=== PATIENT | male | born 1940 | race Caucasian/White ===

== ENCOUNTER 2018-03-01 20:28 | Outpatient (REF) | payer MEDICARE, SELFPAY ==
[2018-03-01 21:08] LABS: Potassium 3.4 mmol/L (3.5-5.1)
== END 2018-03-01 20:48 ==
LOC: NCHCN 20:28
PROVIDERS: Visit Provider Family Medicine
DX: E87.6 Hypokalemia (principal)
CPT/HCPCS: 84132

== ENCOUNTER 2018-10-25 14:57 | Outpatient (REF) | payer MEDICARE, SELFPAY ==
[2018-10-25 21:44] LABS: Abs Immature Grans 0.27 k/cumm (0.0-0.09); HCT 42.5 % (40.0-50.0); Mean Corp. HGB Concentration 32.9 g/dL (32.0-36.0); Mean Corpuscular Hemoglobin 27.2 pg (27.0-33.0); Mean Corpuscular Volume 82.7 fL (80-95); Mean Platelet Volume 11.7 fL (8.0-11.0); Platelet Count 118 x1000/uL (130-400); RBC 5.14 m/cumm (4.50-6.00); RBC Distribution Width 17.9 % (11.8-14.1); White Blood Cell Count 11.29 k/cumm (4.4-10.8)
[2018-10-25 22:08] LABS: ALT 31 U/L (12-78); AST 24 U/L (15-37); Alkaline Phosphatase 76 U/L (46-116); Anion Gap 11.4 mmol/L (3-11); BUN 23 mg/dL (7-18); Bilirubin, Total 0.4 mg/dL (0.2-1.0); CO2 26.6 mmol/L (21.0-32.0); Calcium 10.2 mg/dL (8.5-10.1); Chloride 105 mmol/L (98-107); Estimated GFR 53.67 (mL/min/1.73m2); Glucose 104 mg/dL (70-100); Potassium 3.8 mmol/L (3.5-5.1); Sodium 143 mmol/L (136-145); TSH 2.75 uIU/mL (0.358-3.74)
[2018-10-25 22:46] LABS: Absolute Lymphocyte Count 3.61 k/cumm (1.2-3.4); Absolute Neutrophil Count 5.08 k/cumm (1.2-6.7)
[2018-10-25 22:47] LABS: Absolute Basophil Count 0.11 k/cumm (0.0-0.2); Absolute Monocyte Count 2.37 k/cumm (0.11-0.7); Atypical Lymphocytes % 9; Diff Comment Manual Differential; Nucleated RBC 1 /100WBC; RBC Morphology Normal
== END 2018-10-25 15:17 ==
LOC: NCHCN 14:57
PROVIDERS: Visit Provider Family Medicine
DX: I10 Essential (primary) hypertension (principal); E03.9 Hypothyroidism, unspecified; D69.6 Thrombocytopenia, unspecified
CPT/HCPCS: 80053; 84443; 85025

== ENCOUNTER 2021-07-30 21:20 | Outpatient (REF) | payer MEDICARE, SELFPAY ==
[2021-07-30 21:38] LABS: HGB 8.2 g/dL (13.5-17.5); MCH 25.2 pg (27.0-33.0); MCHC 30.4 % (32.0-36.0); MCV 82.8 fL (80-95); Nucleated RBC 0 %; RBC 3.26 10^6/uL (4.36-5.78); RDW 17.5 % (11.8-14.1); RDW-SD 51.8 fL
[2021-07-30 22:12] LABS: Platelet Count 80 10^3/uL (130-400)
[2021-07-30 22:13] LABS: Absolute Eosinophil Count 0.13 10^3/uL (0.0-0.7); Absolute Lymphocyte Count 1.82 10^3/uL (1.2-3.4); Absolute Monocyte Count 1.43 10^3/uL (0.1-0.8); Absolute Neutrophil Count 8.97 10^3/uL (1.2-6.7); Bands % 1; Diff Comment Manual Differential; Metamyelocytes % 1; Myelocytes % 4
[2021-07-30 22:14] LABS: Anisocytosis 1+; Microcytosis 1+; Poikilocytes 2+
== END 2021-07-30 21:21 | disposition home or self-care (01) ==
LOC: LBN 21:20
PROVIDERS: Visit Provider Family Medicine
DX: R64 Cachexia
CPT/HCPCS: 80053; 84443; 85025

== ENCOUNTER 2021-08-20 20:39 | Outpatient (REF) | payer MEDICARE, SELFPAY ==
[2021-08-20 21:12] LABS: HCT 30.8 % (40.0-50.0); HGB 9.5 g/dL (13.5-17.5); MCH 26.3 pg (27.0-33.0); MCHC 30.8 % (32.0-36.0); MCV 85.3 fL (80-95); MPV 12.7 fL (8.0-11.0); Nucleated RBC 0 %; RBC 3.61 10^6/uL (4.36-5.78); RDW 18.5 % (11.8-14.1); RDW-SD 57.5 fL
[2021-08-20 21:15] LABS: ESR 21 mm/hr (0-20)
[2021-08-20 21:35] LABS: ALT 19 U/L (16-63); AST 14 U/L (15-37); Albumin 3.1 g/dL (3.4-5.0); Alkaline Phosphatase 89 U/L (46-116); BUN 26 mg/dL (7-18); Bilirubin, Total 0.7 mg/dL (0.2-1.0); C-Reactive Protein 5.45 mg/dL (0.0-0.3); CREATININE 1.6 mg/dL (0.70-1.30); Calcium 9.2 mg/dL (8.5-10.1); Chloride 102 mmol/L (98-107); Glucose 89 mg/dL (74-106); Potassium 4.5 mmol/L (3.5-5.1); Sodium 136 mmol/L (136-145); Total Protein 6.6 g/dL (6.4-8.2)
[2021-08-20 21:54] LABS: WBC 27.29 10^3/uL (4.4-10.8)
[2021-08-20 22:01] LABS: Platelet Count 83 10^3/uL (130-400)
[2021-08-20 22:02] LABS: Absolute Eosinophil Count 0.27 10^3/uL (0.0-0.7); Absolute Lymphocyte Count 4.37 10^3/uL (1.2-3.4); Absolute Monocyte Count 4.37 10^3/uL (0.1-0.8); Absolute Neutrophil Count 16.65 10^3/uL (1.2-6.7); Bands % 5; Metamyelocytes % 3; Myelocytes % 3
[2021-08-20 22:04] LABS: Diff Comment Manual Differential; Poikilocytes 1+
== END 2021-08-20 20:40 | disposition home or self-care (01) ==
LOC: LBN 20:39
PROVIDERS: Visit Provider Family Medicine
DX: C91.90 Lymphoid leukemia, unspecified not having achieved remission (principal); I12.9 Hypertensive chronic kidney disease with stage 1 through stage 4 chronic kidney disease, or unspecified chronic kidney disease; N18.32 Chronic kidney disease, stage 3b; M06.9 Rheumatoid arthritis, unspecified
CPT/HCPCS: 80053; 85652; 85025; 86140

== ENCOUNTER 2021-09-01 16:46 | Outpatient (REF) | payer MEDICARE, SELFPAY ==
[2021-09-01 17:23] LABS: HGB 9.2 g/dL (13.5-17.5); MCH 26.9 pg (27.0-33.0); MCHC 30.7 % (32.0-36.0); MCV 87.7 fL (80-95); MPV 11.9 fL (8.0-11.0); Platelet Count 94 10^3/uL (130-400); RBC 3.42 10^6/uL (4.36-5.78); RDW-SD 60.2 fL
[2021-09-01 18:21] LABS: ALT 16 U/L (16-63); AST 11 U/L (15-37); Albumin 3.2 g/dL (3.4-5.0); Alkaline Phosphatase 82 U/L (46-116); Anion Gap 10.7 mmol/L (3-11); BUN 20 mg/dL (7-18); Bilirubin, Total 0.4 mg/dL (0.2-1.0); CO2 25.3 mmol/L (21.0-32.0); CREATININE 2.1 mg/dL (0.70-1.30); Calcium 9.6 mg/dL (8.5-10.1); Chloride 103 mmol/L (98-107); Estimated GFR 30.62 (mL/min/1.73m2); Glucose 96 mg/dL (74-106); Potassium 3.3 mmol/L (3.5-5.1); Sodium 139 mmol/L (136-145); Total Protein 6.4 g/dL (6.4-8.2)
[2021-09-01 19:15] LABS: Absolute Lymphocyte Count 6.82 10^3/uL (1.2-3.4)
[2021-09-01 19:16] LABS: Absolute Monocyte Count 16.47 10^3/uL (0.1-0.8); Anisocytosis 1+; Diff Comment Manual Differential; Hypochromasia 1+; Metamyelocytes % 3; Myelocytes % 3
[2021-09-01 19:17] LABS: Poikilocytes 1+
== END 2021-09-01 16:47 | disposition home or self-care (01) ==
LOC: LBN 16:46
PROVIDERS: Visit Provider Internal Medicine Hematology & Oncology
DX: C91.90 Lymphoid leukemia, unspecified not having achieved remission (principal)
CPT/HCPCS: 80053; 83735; 85025

== ENCOUNTER 2021-09-09 21:24 | Outpatient (REF) | payer MEDICARE, SELFPAY ==
[2021-09-09 21:59] LABS: TSH (W/Ref FT4) 14.57 uIU/mL (0.36-3.74)
[2021-09-09 22:16] LABS: FREE T4 1.38 ng/dL (0.76-1.46)
[2021-09-10 18:41] LABS: PSA, Screening 8.3 ng/mL (<=6.5)
== END 2021-09-09 21:25 | disposition home or self-care (01) ==
LOC: LBN 21:24
PROVIDERS: Visit Provider Family Medicine
DX: E03.9 Hypothyroidism, unspecified (principal); R35.89 Other polyuria; R35.1 Nocturia; Z12.5 Encounter for screening for malignant neoplasm of prostate
CPT/HCPCS: 84153; 84439; 84443

== ENCOUNTER 2021-09-29 20:18 | Outpatient (REF) | payer MEDICARE, SELFPAY ==
[2021-09-29 20:55] LABS: Abs Immature Grans 9.26 10^3/uL (0.0-0.06); HCT 32.8 % (40.0-50.0); HGB 9.8 g/dL (13.5-17.5); MCH 26.8 pg (27.0-33.0); MCHC 29.9 % (32.0-36.0); MCV 90 fL (80-95); MPV 12.8 fL (8.0-11.0); RBC 3.66 10^6/uL (4.36-5.78); RDW 17.8 % (11.8-14.1); RDW-SD 57.3 fL
[2021-09-29 21:38] LABS: ALT 28 U/L (16-63); AST 21 U/L (15-37); Albumin 2.8 g/dL (3.4-5.0); Alkaline Phosphatase 125 U/L (46-116); Anion Gap 9.6 mmol/L (3-11); BUN 20 mg/dL (7-18); Bilirubin, Total 0.4 mg/dL (0.2-1.0); CO2 25.4 mmol/L (21.0-32.0); CREATININE 1.7 mg/dL (0.70-1.30); Calcium 9.3 mg/dL (8.5-10.1); Chloride 106 mmol/L (98-107); Estimated GFR 39.07 (mL/min/1.73m2); Glucose 81 mg/dL (74-106); LDH 265 U/L (85-227); Potassium 3.9 mmol/L (3.5-5.1); Sodium 141 mmol/L (136-145); Total Protein 6.6 g/dL (6.4-8.2)
[2021-09-29 22:04] LABS: Absolute Lymphocyte Count 9.78 10^3/uL (1.2-3.4); Absolute Monocyte Count 21.51 10^3/uL (0.1-0.8); Absolute Neutrophil Count 59.65 10^3/uL (1.2-6.7); Bands % 10; WBC 97.78 10^3/uL (4.4-10.8)
[2021-09-29 22:05] LABS: Anisocytosis 1+; Diff Comment Manual Differential; Metamyelocytes % 3; Myelocytes % 3; Polychromasia Present; Promyelocytes % 1
[2021-09-29 22:06] LABS: Platelet Count 57 10^3/uL (130-400)
== END 2021-09-29 20:19 | disposition home or self-care (01) ==
LOC: LBN 20:18
PROVIDERS: Visit Provider Internal Medicine Hematology & Oncology
DX: J18.9 Pneumonia, unspecified organism (principal); I10 Essential (primary) hypertension; E03.9 Hypothyroidism, unspecified
CPT/HCPCS: 80053; 83615; 85025